=== PATIENT | male | born 1985 | race American Indian/Alaskan Native ===

== ENCOUNTER 2017-04-03 10:34 | Emergency (ER) | payer BC, MEDICAID, OTHER ==
--- NOTE | 2017-04-03 10:37 | EDM.PDOC ---
ED HPI GENERAL MEDICAL PROBLEM - General Chief Complaint: Abdominal Pain Stated Complaint: ABDOMINAL PAIN. IN BY [facility] Time Seen by Provider: 04/03/17 10:36 Source of Information: Reports: Patient, EMS, Old Records, RN, RN Notes Reviewed History Limitations: Reports: No Limitations - History of Present Illness INITIAL COMMENTS - FREE TEXT/NARRATIVE: Arrives from alf by ambulance with c/o onset of middle and upper abdominal pain this morning with nausea and vomiting. Pt reports sensation of fever and chills, but has not had temp. measured. Denies diarrhea, or constipation. Reports feeling slightly distended in the abdomen. Last ate yesterday evening. Last BM yesterday and normal. Denies any radiating pain, or urinary Sx's. Onset: Today Onset Date: 04/03/17 Duration: Constant, Getting Worse, Waxing/Waning Location: Reports: Abdomen Quality: Reports: Ache, Pressure Severity: Severe Improves with: Reports: None Worsens with: Reports: None Associated Symptoms: Reports: No Other Symptoms Epigastric Pain Score (Numeric/FACES): 10 - Related Data Allergies Allergy/AdvReac Type Severity Reaction Status Date / Time hydrocodone Allergy Mild Itching Verified 01/11/15 22:58 Home Meds: Home Meds . [No Known Home Meds] 04/03/17 [History] Past Medical History Gastrointestinal History: Reports: Bowel Obstruction (x3) Social & Family History - Family History Family Medical History: Noncontributory - Tobacco Use Smoking Status *Q: Current Every Day Smoker Years of Tobacco use: 10 Used Tobacco, but Quit: No Second Hand Smoke Exposure: Yes - Alcohol Use Days Per Week of Alcohol Use: 0 Number of Drinks Per Day: 0 Total Drinks Per Week: 0 - Recreational Drug Use Recreational Drug Use: No - Living Situation & Occupation Living situation: Reports: Single, Other (currently in alf at [place]) Occupation: Unemployed ED ROS GENERAL - Review of Systems Review Of Systems: ROS reveals no pertinent complaints other than HPI. ED EXAM, GI/ABD - Physical Exam Exam: See Below Exam Limited By: No Limitations General Appearance: Alert, WD/WN, No Apparent Distress, Obese Eyes: Bilateral: Normal Appearance Nose: Normal Inspection Throat/Mouth: Normal Oropharynx, Normal Voice, No Airway Compromise Head: Atraumatic, Normocephalic Neck: Normal Inspection, Supple, Non-Tender, Full Range of Motion Respiratory/Chest: No Respiratory Distress, Lungs Clear, Normal Breath Sounds, No Accessory Muscle Use, Chest Non-Tender Cardiovascular: Normal Peripheral Pulses, Regular Rate, Rhythm, No Edema, No Gallop, No JVD, No Murmur, No Rub GI/Abdominal: No Organomegaly, No Abnormal Bruit, Hypoactive Bowel Sounds, Tympanic Bowel Sounds, Distention (mild). No: Guarding, Rebound, Rigidity (Male) Exam: Deferred Rectal (Males) Exam: Deferred Back Exam: Normal Inspection, Full Range of Motion. No: CVA Tenderness (L), CVA Tenderness (R) Extremities: Normal Inspection Neurological: Alert, Oriented, CN II-XII Intact, Normal Cognition, No Motor/ Sensory Deficits Psychiatric: Normal Affect, Normal Mood Skin Exam: Warm, Dry, Intact, Normal Color, No Rash Course - Vital Signs Last Recorded V/S: Last Vital Signs Temp 36.7 C 04/03/17 12:26 Pulse 78 04/03/17 12:26 Resp 18 04/03/17 12:26 BP 128/58 L 04/03/17 12:26 Pulse Ox 99 04/03/17 12:26 - Orders/Labs/Meds Orders: Active Orders 24 hr Category Date Time Status Peripheral IV Care [RC] . DIRECTED Care 04/03/17 10:41 Active Sodium Chloride 0.9% [Saline Flush] Med 04/03/17 10:41 Active 10 ml FLUSH ASDIRECTED PRN NG [Nasogastric Orogastric Tube Insertion] [OM.PC] Oth 04/03/17 12:40 Ordered Routine Peripheral IV Insertion Adult [OM.PC] Stat Ot 04/03/17 10:40 Ordered Medication Orders Sodium Chloride (Saline Flush) 10 ml FLUSH ASDIRECTED PRN PRN Reason: Keep Vein Open Labs: Laboratory Tests 04/03/17 04/03/17 04/03/17 Range/Units 10:50 10:50 10:50 WBC 11.7 H (5.0-10.0) 10^3/uL RBC 5.61 (4.6-6.2) 10^6/uL Hgb 15.2 (14.0-18.0) g/dL Hct 46.3 (40.0-54.0) % MCV 82.5 (80-100) fL MCH 27.1 (27.0-34.0) pg MCHC 32.8 L (33.0-35.0) g/dL Plt Count 292 (150-450) 10^3/uL Neut % (Auto) 87.9 H (42.2-75.2) % Lymph % (Auto) 5.7 L (20.5-50.1) % [place] % (Auto) 5.3 (2-8) % Eos % (Auto) 0.9 L (1.0-3.0) % Baso % (Auto) 0.2 (0.0-1.0) % Sodium 139 (135-145) mmol/L Potassium 4.3 (3.6-5.0) mmol/L Chloride 103 (101-111) mmol/L Carbon Dioxide 23.0 (21.0-31.0) mmol/L Anion Gap 17.3 BUN 8 (7-18) mg/dL Creatinine 0.8 (0.6-1.3) mg/dL Est Cr Clr Drug Dosing TNP Estimated GFR (MDRD) > 60 BUN/Creatinine Ratio 10.00 Glucose 131 H (74-105) mg/dL Lactic Acid 1.1 (0.5-2.2) mmol/L Calcium 9.2 (8.4-10.2) mg/dl Total Bilirubin 0.9 (0.2-1.0) mg/dL AST 24 (10-42) IU/L ALT 34 (10-60) IU/L Alkaline Phosphatase 78 (42-121) IU/L Total Protein 7.8 (6.7-8.2) g/dl Albumin 4.2 (3.2-5.5) g/dl Globulin 3.6 Albumin/Globulin Ratio 1.17 Amylase 21 L (28-100) U/L Lipase 17 L (22-51) U/L Urine Color (YELLOW) Urine Appearance (CLEAR) Urine pH (5.0-9.0) Ur Specific [place] (1.005-1.030) Urine Protein (NEGATIVE) Urine Glucose (UA) (NEGATIVE) Urine Ketones (NEGATIVE) Urine Occult Blood (NEGATIVE) Urine Nitrite (NEGATIVE) Urine Bilirubin (NEGATIVE) Urine Urobilinogen (0.2-1.0) mg/dL Ur Leukocyte Esterase (NEGATIVE) Urine RBC /HPF Urine WBC (0-5/HPF) /HPF Amorphous Sediment (0/HPF) /HPF Urine Bacteria (0-FEW/HPF) /HPF Urine Mucus /LPF Urine Opiates Screen (NEGATIVE) Ur Oxycodone Screen (NEGATIVE) Urine Methadone Screen (NEGATIVE) Ur Barbiturates Screen (NEGATIVE) U Tricyclic Antidepress (NEGATIVE) Ur Phencyclidine Scrn (NEGATIVE) Ur Amphetamine Screen (NEGATIVE) U Methamphetamines Scrn (NEGATIVE) Urine MDMA Screen (NEGATIVE) U Benzodiazepines Scrn (NEGATIVE) Urine Cocaine Screen (NEGATIVE) U Marijuana (THC) Screen (NEGATIVE) Ethyl Alcohol < 5 mg/dL 04/03/17 04/03/17 Range/Units 10:57 10:57 WBC (5.0-10.0) 10^3/uL RBC (4.6-6.2) 10^6/uL Hgb (14.0-18.0) g/dL Hct (40.0-54.0) % MCV (80-100) fL MCH (27.0-34.0) pg MCHC (33.0-35.0) g/dL Plt Count (150-450) 10^3/uL Neut % (Auto) (42.2-75.2) % Lymph % (Auto) (20.5-50.1) % [place] % (Auto) (2-8) % Eos % (Auto) (1.0-3.0) % Baso % (Auto) (0.0-1.0) % Sodium (135-145) mmol/L Potassium (3.6-5.0) mmol/L Chloride (101-111) mmol/L Carbon Dioxide (21.0-31.0) mmol/L Anion Gap BUN (7-18) mg/dL Creatinine (0.6-1.3) mg/dL Est Cr Clr Drug Dosing Estimated GFR (MDRD) BUN/Creatinine Ratio Glucose (74-105) mg/dL Lactic Acid (0.5-2.2) mmol/L Calcium (8.4-10.2) mg/dl Total Bilirubin (0.2-1.0) mg/dL AST (10-42) IU/L ALT (10-60) IU/L Alkaline Phosphatase (42-121) IU/L Total Protein (6.7-8.2) g/dl Albumin (3.2-5.5) g/dl Globulin Albumin/Globulin Ratio Amylase (28-100) U/L Lipase (22-51) U/L Urine Color Dark yellow (YELLOW) Urine Appearance Slightly cloudy (CLEAR) Urine pH 7.0 (5.0-9.0) Ur Specific [place] 1.020 (1.005-1.030) Urine Protein Negative (NEGATIVE) Urine Glucose (UA) Negative (NEGATIVE) Urine Ketones 40 H (NEGATIVE) Urine Occult Blood Negative (NEGATIVE) Urine Nitrite Negative (NEGATIVE) Urine Bilirubin Small H (NEGATIVE) Urine Urobilinogen 2.0 H (0.2-1.0) mg/dL Ur Leukocyte Esterase Negative (NEGATIVE) Urine RBC 0-5 /HPF Urine WBC 0-5 (0-5/HPF) /HPF Amorphous Sediment Few (0/HPF) /HPF Urine Bacteria Rare (0-FEW/HPF) /HPF Urine Mucus Moderate H /LPF Urine Opiates Screen Negative (NEGATIVE) Ur Oxycodone Screen Negative (NEGATIVE) Urine Methadone Screen Negative (NEGATIVE) Ur Barbiturates Screen Negative (NEGATIVE) U Tricyclic Antidepress Negative (NEGATIVE) Ur Phencyclidine Scrn Negative (NEGATIVE) Ur Amphetamine Screen Negative (NEGATIVE) U Methamphetamines Scrn Negative (NEGATIVE) Urine MDMA Screen Negative (NEGATIVE) U Benzodiazepines Scrn Negative (NEGATIVE) Urine Cocaine Screen Negative (NEGATIVE) U Marijuana (THC) Screen Negative (NEGATIVE) Ethyl Alcohol mg/dL Meds: Medications Generic Name Dose Route Start Last Admin Trade Name Freq PRN Reason Stop Dose Admin Sodium Chloride 10 ml 04/03/17 10:41 Saline Flush FLUSH ASDIRECTED PRN Keep Vein Open Discontinued Medications Generic Name Dose Route Start Last Admin Trade Name Freq PRN Reason Stop Dose Admin Fentanyl 50 mcg 04/03/17 10:41 04/03/17 10:51 Sublimaze IVPUSH 04/03/17 10:42 50 mcg ONETIME ONE Administration Sodium Chloride 1,000 mls @ 999 mls/hr 04/03/17 10:40 04/03/17 11:10 Normal Saline IV 04/03/17 11:40 999 mls/hr .BOLUS ONE Administration Iopamidol 100 ml 04/03/17 11:26 04/03/17 11:57 Isovue-300 (61%) IVPUSH 04/03/17 11:27 100 ml ONETIME ONE Administration Midazolam HCl 2 mg 04/03/17 12:39 Versed 1 Mg/Ml IVPUSH 04/03/17 12:40 ONETIME ONE Ondansetron HCl 4 mg 04/03/17 10:40 04/03/17 10:47 Zofran IV 04/03/17 10:41 4 mg ONETIME ONE Administration - Radiology Interpretation Free Text/Narrative:: CT Abd/Pelvis: Mechanical SBO without obvious transition point, but with terminal ileum mucosal wall thickening and inflammatory "dirty" fat, no other acute findings, see Rad. report. CT Results Date: 04/03/17 - Re-Assessments/Exams Free Text/Narrative Re-Assessment/Exam: 04/03/17 12:47 Pt refused NG tube placement, stating he would rather wait and have that done in [place]. Departure - Departure Time of Disposition: 12:40 Disposition: DC/Tfer to Acute Hospital 02 Condition: Serious Clinical Impression: Small bowel obstruction - Discharge Information Forms: ED Department Discharge, Interfacility Transfer EMTALA - My Orders Last 24 Hours: My Active Orders 04/03/17 10:40 Peripheral IV Insertion Adult [OM.PC] Stat 04/03/17 10:41 Peripheral IV Care [RC] . DIRECTED Sodium Chloride 0.9% [Saline Flush] 10 ml FLUSH ASDIRECTED PRN 04/03/17 12:40 NG [Nasogastric Orogastric Tube Insertion] [OM.PC] Routine - Assessment/Plan Last 24 Hours: My Active Orders 04/03/17 10:40 Peripheral IV Insertion Adult [OM.PC] Stat 04/03/17 10:41 Peripheral IV Care [RC] . DIRECTED Sodium Chloride 0.9% [Saline Flush] 10 ml FLUSH ASDIRECTED PRN 04/03/17 12:40 NG [Nasogastric Orogastric Tube Insertion] [OM.PC] Routine
[2017-04-03] MEDS ORDERED: Ondansetron 4 MG/2 ML SDV IV ONE (10:40)
[2017-04-03] MEDS ORDERED: Sodium Chloride 0.9% 1,000 ML IV ONE (10:40)
[2017-04-03] MEDS ORDERED: fentaNYL 100 MCG/2 ML SDV IVPUSH ONE (10:41)
[2017-04-03] MEDS ORDERED: Sodium Chloride 0.9% 10 ML Syringe FLUSH PRN (10:41)
[2017-04-03 11:17] LABS: CHLORIDE,CL 103 mmol/L (101-111); SODIUM,NA 139 mmol/L (135-145)
[2017-04-03] MEDS ORDERED: Iopamidol 612 MG/ML 100 ML Bottle IVPUSH ONE (11:26)
[2017-04-03 12:26] VITALS: BP 128/58
--- NOTE | 2017-04-03 12:33 | CT ---
Clinical history: 31-year-old 230 pound "sick" hypertensive male smoker admitted to the emergency de partment with periumbilical pain and elevated white blood cell count (11,700). Scan technique: Volume acquisition of data from the abdomen and pelvis obtained without oral contras t but during intravenous administration 100 cc nonionic Isovue contrast while patient was lying supi ne on the Siemens multi slice scanner [place], [place]. All data arch ived in the PACS system for storage, reformatting and study. Interpretation: Abnormal. 1. *Dilated fluid-filled loops of small intestine, with the exception of terminal ileum that appears to have some mucosal wall thickening and adjacent inflammatory "dirty" mesenteric peritoneal fat i. e. inflammation. Terminal ileitis? 2. Normal appendix identified RLQ. No calcified appendicoliths, periappendiceal abscess or "dirty" f at. 3. Gallbladder, liver, stomach, spleen, pancreas and adrenal glands unremarkable. 4. Normal reniform size axis and configuration. No sign of renal cortical mass lesion, nephrolithias is or obstructive uropathy. Incomplete lead but symmetrically distended normal appearing urinary jeff dder. 5. No pelvic or abdominal mass lesion, appreciable mesenteric or retroperitoneal lymphadenopathy, as cites or free intraperitoneal air. 6. Normal caliber aortoiliac vessels. Normal lumbar spine. Lung bases clear.
[2017-04-03] MEDS ORDERED: Midazolam 1 MG/ML 2 ML SDV IVPUSH ONE (12:39)
== END 2017-04-03 13:22 ==
LOC: DL.ED 10:34
DX: K56.60 Unspecified intestinal obstruction (principal); F17.200 Nicotine dependence, unspecified, uncomplicated; Z88.5 Allergy status to narcotic agent
CPT/HCPCS: 36415; 74177; 80053; 80305; 81001; 82150; 83605; 83690; 85025; 96361; 96374; 96375; 99285; G0480; J2405; J3010; J7030; Q9967

== ENCOUNTER 2017-09-25 18:09 | Emergency (ER) | payer OTHER ==
[2017-09-25 18:22] VITALS: BP 151/99
[2017-09-25] MEDS ORDERED: Ondansetron 4 MG/2 ML SDV IV ONE (18:44)
[2017-09-25] MEDS ORDERED: Sodium Chloride 0.9% 1,000 ML IV ONE (18:44)
--- NOTE | 2017-09-25 18:49 | EDM.PDOC ---
ED HPI GENERAL MEDICAL PROBLEM - General Chief Complaint: Abdominal Pain Stated Complaint: STOMACH PAIN [id number] Time Seen by Provider: 09/25/17 18:45 Source of Information: Reports: Patient History Limitations: Reports: No Limitations - History of Present Illness INITIAL COMMENTS - FREE TEXT/NARRATIVE: 1 week h/o abd pain feeling like a bowel obstruction which he had for long time many years. been Tx @ [facility] before but no surgery needed. been passing gas and no V /D, was nauseous yesterday better today. ate sandwich @ [facility] tonight. Middle Abdomen Pain Score (Numeric/FACES): 6 - Related Data Allergies Allergy/AdvReac Type Severity Reaction Status Date / Time hydrocodone Allergy Mild Itching Verified 09/25/17 18:18 Home Meds: Home Meds . [No Known Home Meds] 04/03/17 [History] Past Medical History HEENT History: Reports: None Cardiovascular History: Reports: None Respiratory History: Reports: None Gastrointestinal History: Reports: Bowel Obstruction Genitourinary History: Reports: None Musculoskeletal History: Reports: None Neurological History: Reports: None Psychiatric History: Reports: None Endocrine/Metabolic History: Reports: None Hematologic History: Reports: None Oncologic (Cancer) History: Reports: None Dermatologic History: Reports: None Social & Family History - Family History Family Medical History: Noncontributory - Tobacco Use Smoking Status *Q: Light Tobacco Smoker Years of Tobacco use: 10 Packs/Tins Daily: 0.2 Used Tobacco, but Quit: No Second Hand Smoke Exposure: Yes - Caffeine Use Caffeine Use: Reports: Soda - Alcohol Use Days Per Week of Alcohol Use: 0 Number of Drinks Per Day: 0 Total Drinks Per Week: 0 - Recreational Drug Use Recreational Drug Use: Yes Recreational Drug Type: Reports: Marijuana/Hashish Recreational Drug Use Frequency: Socially - Living Situation & Occupation Living situation: Reports: Single, Other (currently in residential at [place]) Occupation: Unemployed ED ROS GENERAL - Review of Systems Review Of Systems: ROS reveals no pertinent complaints other than HPI. ED EXAM, GI/ABD - Physical Exam Exam: See Below Exam Limited By: No Limitations General Appearance: Alert, WD/WN, Mild Distress, Other (abd pain) Ears: Hearing Grossly Normal Throat/Mouth: Normal Voice, No Airway Compromise Head: Atraumatic Neck: Non-Tender, Full Range of Motion Respiratory/Chest: No Respiratory Distress Cardiovascular: Regular Rate, Rhythm GI/Abdominal Exam: Tender, Other (general discomfort, hyper BS). No: Distended , Guarding, Rigid, Rebound Neurological: Alert, Oriented, Normal Cognition, Normal Gait, No Motor/Sensory Deficits Psychiatric: Tearful Skin Exam: Warm, Dry, Normal Color Lymphatic: No Adenopathy Course - Vital Signs Last Recorded V/S: Last Vital Signs Temp 37.0 C 09/25/17 18:18 Pulse 75 09/25/17 18:18 Resp 18 09/25/17 18:18 BP 151/99 H 09/25/17 18:18 Pulse Ox 100 09/25/17 18:18 - Orders/Labs/Meds Orders: Active Orders 24 hr Category Date Time Status Abdomen Pelvis wo Cont [CT] Urgent Exams 09/25/17 18:49 Taken Sodium Chloride 0.9% [Normal Saline] 1,000 ml Med 09/25/17 18:44 Active IV .BOLUS Medication Orders Sodium Chloride (Normal Saline) 1,000 mls @ 500 mls/hr IV .BOLUS ONE Stop: 09/25/17 20:43 Last Admin: 09/25/17 18:58 Dose: 500 mls/hr Labs: Laboratory Tests 09/25/17 09/25/17 09/25/17 Range/Units 18:35 18:35 18:35 WBC 10.4 H (5.0-10.0) 10^3/uL RBC 5.39 (4.6-6.2) 10^6/uL Hgb 14.4 (14.0-18.0) g/dL Hct 45.4 (40.0-54.0) % MCV 84.2 (80-100) fL MCH 26.7 L (27.0-34.0) pg MCHC 31.7 L (33.0-35.0) g/dL Plt Count 339 (150-450) 10^3/uL Neut % (Auto) 70.6 (42.2-75.2) % Lymph % (Auto) 17.7 L (20.5-50.1) % [place] % (Auto) 6.4 (2-8) % Eos % (Auto) 5.0 H (1.0-3.0) % Baso % (Auto) 0.3 (0.0-1.0) % Sodium 141 (135-145) mmol/L Potassium 3.6 (3.6-5.0) mmol/L Chloride 106 (101-111) mmol/L Carbon Dioxide 28.0 (21.0-31.0) mmol/L Anion Gap 10.6 BUN 9 (7-18) mg/dL Creatinine 0.7 (0.6-1.3) mg/dL Est Cr Clr Drug Dosing 166.29 mL/min Estimated GFR (MDRD) > 60 BUN/Creatinine Ratio 12.85 Glucose 111 H (74-105) mg/dL Lactic Acid 1.1 (0.5-2.2) mmol/L Calcium 8.7 (8.4-10.2) mg/dl Total Bilirubin 0.5 (0.2-1.0) mg/dL AST 21 (10-42) IU/L ALT 22 (10-60) IU/L Alkaline Phosphatase 66 (42-121) IU/L Total Protein 6.7 (6.7-8.2) g/dl Albumin 3.7 (3.2-5.5) g/dl Globulin 3.0 Albumin/Globulin Ratio 1.23 Amylase 24 L (28-100) U/L Lipase 26 (22-51) U/L Meds: Medications Generic Name Dose Route Start Last Admin Trade Name Freq PRN Reason Stop Dose Admin Sodium Chloride 1,000 mls @ 500 mls/hr 09/25/17 18:44 09/25/17 18:58 Normal Saline IV 09/25/17 20:43 500 mls/hr .BOLUS ONE Administration Discontinued Medications Generic Name Dose Route Start Last Admin Trade Name Freq PRN Reason Stop Dose Admin Ondansetron HCl 4 mg 09/25/17 18:44 09/25/17 18:59 Zofran IV 09/25/17 18:45 4 mg ONETIME ONE Administration - Re-Assessments/Exams Free Text/Narrative Re-Assessment/Exam: 09/25/17 19:56 re-exam; s/p IV + zof = much better now. results discussed with pt. Departure - Departure Time of Disposition: 19:57 Disposition: Home, Self-Care 01 Condition: Good Clinical Impression: Small bowel obstruction, [place] periumbilical abdominal pain - Discharge Information Instructions: Small Bowel Obstruction, [id number] Forms: ED Department Discharge Additional Instructions: 1) avoid solid foods next 48 hours 2) have popsicle, jello, broth, smoothies 3) return if there is any change or concern rx given; bentyl 10mg bid prn x 1 week - My Orders Last 24 Hours: My Active Orders 09/25/17 18:44 Sodium Chloride 0.9% [Normal Saline] 1,000 ml IV .BOLUS 09/25/17 18:49 Abdomen Pelvis wo Cont [CT] Urgent - Assessment/Plan Last 24 Hours: My Active Orders 09/25/17 18:44 Sodium Chloride 0.9% [Normal Saline] 1,000 ml IV .BOLUS 09/25/17 18:49 Abdomen Pelvis wo Cont [CT] Urgent
[2017-09-25 19:08] LABS: ANION GAP 10.6; CHLORIDE,CL 106 mmol/L (101-111); SODIUM,NA 141 mmol/L (135-145)
[2017-09-25] MEDS ORDERED: Dicyclomine 20 MG/2 ML SDV IM ONE (19:57)
== END 2017-09-25 20:13 | disposition home or self-care (01) ==
LOC: DL.ED 18:09
DX: K56.609 Unspecified intestinal obstruction, unspecified as to partial versus complete obstruction (principal); F17.210 Nicotine dependence, cigarettes, uncomplicated; Z88.5 Allergy status to narcotic agent
CPT/HCPCS: 36415; 74176; 80053; 82150; 83605; 83690; 85025; 96361; 96372; 96374; 99284; J0500; J2405; J7030

== ENCOUNTER 2017-10-08 04:15 | Inpatient (IN) | payer OTHER ==
[2017-10-08] MEDS ORDERED: Sodium Chloride 0.9% 1,000 ML IV ONE (04:16)
[2017-10-08] MEDS ORDERED: Metoclopramide 10 MG/2 ML SDV IVPUSH ONE (04:25)
[2017-10-08] MEDS ORDERED: Famotidine 20 MG/2 ML SDV IVPUSH ONE (04:27)
[2017-10-08] MEDS ORDERED: Morphine 4 MG/ML Syringe IVPUSH ONE (04:28)
[2017-10-08] MEDS ORDERED: Iopamidol 612 MG/ML 100 ML Bottle IVPUSH ONE (04:45)
[2017-10-08 04:50] LABS: CHLORIDE,CL 104 mmol/L (101-111); SODIUM,NA 137 mmol/L (135-145)
--- NOTE | 2017-10-08 05:56 | EDM.PDOC ---
ED HPI GENERAL MEDICAL PROBLEM - General Chief Complaint: Abdominal Pain Stated Complaint: IN BY AMBULANCE Time Seen by Provider: 10/08/17 04:20 Source of Information: Reports: Patient, EMS, RN History Limitations: Reports: No Limitations - History of Present Illness INITIAL COMMENTS - FREE TEXT/NARRATIVE: ED via [facility] with c/o severe abdominal pain, HX multiple SBO in past and feels same. Last one week ago, has been at home on clear liquid diet, has had continued mild pain. Had BM yesterday so ate [employer] for supper. 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 No vomiting. Denies fever or chills. Patient reports they have not been able to determine why bowel obstructions, No previous abdominal surgery. Abdomen Pain Score (Numeric/FACES): 6 - Related Data Allergies Allergy/AdvReac Type Severity Reaction Status Date / Time hydrocodone Allergy Mild Itching Verified 10/08/17 04:43 Home Meds: Home Meds . [No Known Home Meds] 04/03/17 [History] Past Medical History HEENT History: Reports: None Cardiovascular History: Reports: None Respiratory History: Reports: None Gastrointestinal History: Reports: Bowel Obstruction Genitourinary History: Reports: None Musculoskeletal History: Reports: None Neurological History: Reports: None Psychiatric History: Reports: None Endocrine/Metabolic History: Reports: None Hematologic History: Reports: None Oncologic (Cancer) History: Reports: None Dermatologic History: Reports: None Social & Family History - Family History Family Medical History: Noncontributory - Tobacco Use Smoking Status *Q: Current Every Day Smoker Years of Tobacco use: 15 Packs/Tins Daily: 1 Used Tobacco, but Quit: No Second Hand Smoke Exposure: Yes - Caffeine Use Caffeine Use: Reports: Coffee - Alcohol Use Days Per Week of Alcohol Use: 1 Number of Drinks Per Day: 6 Total Drinks Per Week: 6 - Recreational Drug Use Recreational Drug Use: No Recreational Drug Type: Reports: Marijuana/Hashish Recreational Drug Use Frequency: Socially - Living Situation & Occupation Living situation: Reports: Single, Other (currently in halfway at [place]) Occupation: Unemployed ED ROS GENERAL - Review of Systems Review Of Systems: See Below Constitutional: Denies: Fever, Chills HEENT: Reports: No Symptoms Respiratory: Reports: No Symptoms GI/Abdominal: Reports: Abdominal Pain (generalized, worse around umbilicus) : Reports: No Symptoms Musculoskeletal: Reports: No Symptoms Skin: Reports: No Symptoms Neurological: Reports: No Symptoms ED EXAM, GI/ABD - Physical Exam Exam: See Below Exam Limited By: No Limitations General Appearance: Alert, Moderate Distress Eyes: Right: Proptosis, Bilateral: EOMI Ears: Normal External Exam Nose: Normal Inspection Throat/Mouth: Normal Inspection Head: Atraumatic, Normocephalic Neck: Normal Inspection Respiratory/Chest: No Respiratory Distress, Lungs Clear, Normal Breath Sounds Cardiovascular: Normal Peripheral Pulses, Regular Rate, Rhythm GI/Abdominal Exam: Abnormal Bowel Sounds (hypoactive right, tympanic mid. Faint lower) Back Exam: Normal Inspection Extremities: Normal Inspection Neurological: Alert, Oriented Psychiatric: Normal Affect Skin Exam: Warm, Dry, Intact, Normal Color Course - Vital Signs Last Recorded V/S: Last Vital Signs Temp 97.5 F 10/08/17 04:20 Pulse 62 10/08/17 05:28 Resp 16 10/08/17 05:28 BP 138/83 10/08/17 05:28 Pulse Ox 97 10/08/17 05:28 - Orders/Labs/Meds Orders: Active Orders 24 hr Category Date Time Status Abdomen Pelvis w Cont [CT] Urgent Exams 10/08/17 04:30 Taken Labs: Laboratory Tests 10/08/17 10/08/17 10/08/17 Range/Units 04:20 04:20 05:28 WBC 9.2 (5.0-10.0) 10^3/uL RBC 5.37 (4.6-6.2) 10^6/uL Hgb 14.5 (14.0-18.0) g/dL Hct 44.4 (40.0-54.0) % MCV 82.7 (80-100) fL MCH 27.0 (27.0-34.0) pg MCHC 32.7 L (33.0-35.0) g/dL Plt Count 300 (150-450) 10^3/uL Neut % (Auto) 67.0 (42.2-75.2) % Lymph % (Auto) 17.8 L (20.5-50.1) % [place] % (Auto) 9.6 H (2-8) % Eos % (Auto) 5.3 H (1.0-3.0) % Baso % (Auto) 0.3 (0.0-1.0) % Sodium 137 (135-145) mmol/L Potassium 4.0 (3.6-5.0) mmol/L Chloride 104 (101-111) mmol/L Carbon Dioxide 26.0 (21.0-31.0) mmol/L Anion Gap 11.0 BUN 13 (7-18) mg/dL Creatinine 0.8 (0.6-1.3) mg/dL Est Cr Clr Drug Dosing 145.50 mL/min Estimated GFR (MDRD) > 60 BUN/Creatinine Ratio 16.25 Glucose 113 H (74-105) mg/dL Calcium 9.1 (8.4-10.2) mg/dl Total Bilirubin 0.5 (0.2-1.0) mg/dL AST 23 (10-42) IU/L ALT 22 (10-60) IU/L Alkaline Phosphatase 68 (42-121) IU/L Total Protein 7.3 (6.7-8.2) g/dl Albumin 4.0 (3.2-5.5) g/dl Globulin 3.3 Albumin/Globulin Ratio 1.21 Amylase 21 L (28-100) U/L Lipase 21 L (22-51) U/L Urine Color Dark yellow (YELLOW) Urine Appearance Clear (CLEAR) Urine pH 5.5 (5.0-9.0) Ur Specific [place] >= 1.030 (1.005-1.030) Urine Protein Negative (NEGATIVE) Urine Glucose (UA) Negative (NEGATIVE) Urine Ketones Trace H (NEGATIVE) Urine Occult Blood Negative (NEGATIVE) Urine Nitrite Negative (NEGATIVE) Urine Bilirubin Small H (NEGATIVE) Urine Urobilinogen >=8.0 H (0.2-1.0) mg/dL Ur Leukocyte Esterase Negative (NEGATIVE) Urine RBC 0-5 /HPF Urine WBC 0-5 (0-5/HPF) /HPF Ur Epithelial Cells Occasional /HPF Urine Bacteria Moderate H (0-FEW/HPF) /HPF Urine Mucus Moderate H /LPF Urine Opiates Screen (NEGATIVE) Ur Oxycodone Screen (NEGATIVE) Urine Methadone Screen (NEGATIVE) Ur Barbiturates Screen (NEGATIVE) U Tricyclic Antidepress (NEGATIVE) Ur Phencyclidine Scrn (NEGATIVE) Ur Amphetamine Screen (NEGATIVE) U Methamphetamines Scrn (NEGATIVE) Urine MDMA Screen (NEGATIVE) U Benzodiazepines Scrn (NEGATIVE) Urine Cocaine Screen (NEGATIVE) U Marijuana (THC) Screen (NEGATIVE) 10/08/17 Range/Units 05:28 WBC (5.0-10.0) 10^3/uL RBC (4.6-6.2) 10^6/uL Hgb (14.0-18.0) g/dL Hct (40.0-54.0) % MCV (80-100) fL MCH (27.0-34.0) pg MCHC (33.0-35.0) g/dL Plt Count (150-450) 10^3/uL Neut % (Auto) (42.2-75.2) % Lymph % (Auto) (20.5-50.1) % [place] % (Auto) (2-8) % Eos % (Auto) (1.0-3.0) % Baso % (Auto) (0.0-1.0) % Sodium (135-145) mmol/L Potassium (3.6-5.0) mmol/L Chloride (101-111) mmol/L Carbon Dioxide (21.0-31.0) mmol/L Anion Gap BUN (7-18) mg/dL Creatinine (0.6-1.3) mg/dL Est Cr Clr Drug Dosing mL/min Estimated GFR (MDRD) BUN/Creatinine Ratio Glucose (74-105) mg/dL Calcium (8.4-10.2) mg/dl Total Bilirubin (0.2-1.0) mg/dL AST (10-42) IU/L ALT (10-60) IU/L Alkaline Phosphatase (42-121) IU/L Total Protein (6.7-8.2) g/dl Albumin (3.2-5.5) g/dl Globulin Albumin/Globulin Ratio Amylase (28-100) U/L Lipase (22-51) U/L Urine Color (YELLOW) Urine Appearance (CLEAR) Urine pH (5.0-9.0) Ur Specific [place] (1.005-1.030) Urine Protein (NEGATIVE) Urine Glucose (UA) (NEGATIVE) Urine Ketones (NEGATIVE) Urine Occult Blood (NEGATIVE) Urine Nitrite (NEGATIVE) Urine Bilirubin (NEGATIVE) Urine Urobilinogen (0.2-1.0) mg/dL Ur Leukocyte Esterase (NEGATIVE) Urine RBC /HPF Urine WBC (0-5/HPF) /HPF Ur Epithelial Cells /HPF Urine Bacteria (0-FEW/HPF) /HPF Urine Mucus /LPF Urine Opiates Screen Positive H (NEGATIVE) Ur Oxycodone Screen Positive H (NEGATIVE) Urine Methadone Screen Negative (NEGATIVE) Ur Barbiturates Screen Negative (NEGATIVE) U Tricyclic Antidepress Negative (NEGATIVE) Ur Phencyclidine Scrn Negative (NEGATIVE) Ur Amphetamine Screen Negative (NEGATIVE) U Methamphetamines Scrn Negative (NEGATIVE) Urine MDMA Screen Negative (NEGATIVE) U Benzodiazepines Scrn Positive H (NEGATIVE) Urine Cocaine Screen Negative (NEGATIVE) U Marijuana (THC) Screen Positive H (NEGATIVE) Meds: Medications Discontinued Medications Generic Name Dose Route Start Last Admin Trade Name Freq PRN Reason Stop Dose Admin Famotidine 20 mg 10/08/17 04:27 10/08/17 04:37 Pepcid IVPUSH 10/08/17 04:28 20 mg ONETIME ONE Administration Sodium Chloride 1,000 mls @ 999 mls/hr 10/08/17 04:16 10/08/17 04:26 Normal Saline IV 10/08/17 05:16 999 mls/hr .BOLUS ONE Administration Iopamidol 100 ml 10/08/17 04:45 10/08/17 05:23 Isovue-300 (61%) IVPUSH 10/08/17 04:46 100 ml ONETIME ONE Administration Metoclopramide HCl 10 mg 10/08/17 04:25 10/08/17 04:29 Reglan IVPUSH 10/08/17 04:26 10 mg ONETIME ONE Administration Morphine Sulfate 4 mg 10/08/17 04:28 10/08/17 04:38 Morphine IVPUSH 10/08/17 04:29 4 mg ONETIME ONE Administration - Radiology Interpretation Free Text/Narrative:: CT abdomen with contrast: Small bowel obstruction, transition present in right anterior flank with in the distal ileum, See report - Re-Assessments/Exams Free Text/Narrative Re-Assessment/Exam: NG placed 300ml immediate return colored liquid, Improvement in pain. CT with contrast- SBO 10/08/17 06:[address] Mcmanus, accepting of patient for further management. Departure - Departure Time of Disposition: 06:10 Disposition: Admitted As Inpatient 66 Condition: Fair Clinical Impression: SBO (small bowel obstruction) - Discharge Information Forms: ED Department Discharge - My Orders Last 24 Hours: My Active Orders 10/08/17 04:30 Abdomen Pelvis w Cont [CT] Urgent - Assessment/Plan Last 24 Hours: My Active Orders 10/08/17 04:30 Abdomen Pelvis w Cont [CT] Urgent
[2017-10-08] MEDS ORDERED: Ondansetron 4 MG/2 ML SDV IV PRN (07:36)
[2017-10-08] MEDS ORDERED: Sodium Chloride 0.9% 10 ML Syringe FLUSH PRN (07:38)
[2017-10-08] MEDS ORDERED: Zolpidem 5 MG Tab PO PRN (07:38)
--- NOTE | 2017-10-08 08:30 | PCM.HP ---
H&P History of Present Illness - General Date of Service: 10/08/17 Admit Problem/Dx: Admission Diagnosis/Problem Admission Diagnosis/Problem Small bowel obstruction - History of Present Illness Initial Comments - Free Text/Narative: The patient is a 32-year-old gentleman with a history of recurrent small bowel obstructions. He has not had any abdominal surgeries and never found particular reason for these episodes. He says he had about 4-5 similar episodes in the past 5 years. The patient developed abdominal pain distention nausea about a week ago. He was in the emergency room and was on clear liquid diet at home. Symptoms improved and then yesterday ate regular taco meal. Subsequently the pain returned, nausea vomiting returned, abdomen distended. Came into the emergency room. Abdomen Pain Score (Numeric/FACES): 6 - Related Data Allergies/Adverse Reactions: Allergies Allergy/AdvReac Type Severity Reaction Status Date / Time hydrocodone Allergy Mild Itching Verified 10/08/17 06:37 Home Medications: Home Meds . [No Known Home Meds] 04/03/17 [History] Past Medical History HEENT History: Reports: None Cardiovascular History: Reports: None Respiratory History: Reports: None Gastrointestinal History: Reports: Bowel Obstruction Genitourinary History: Reports: None Musculoskeletal History: Reports: None Neurological History: Reports: None Psychiatric History: Reports: None Endocrine/Metabolic History: Reports: None Hematologic History: Reports: None Oncologic (Cancer) History: Reports: None Dermatologic History: Reports: None Social & Family History - Family History Family Medical History: Noncontributory - Tobacco Use Smoking Status *Q: Current Every Day Smoker Years of Tobacco use: 16 Packs/Tins Daily: 0.4 Used Tobacco, but Quit: No Second Hand Smoke Exposure: Yes - Caffeine Use Caffeine Use: Reports: None - Alcohol Use Days Per Week of Alcohol Use: 1 Number of Drinks Per Day: 6 Total Drinks Per Week: 6 Date of Last Drink: 09/26/17 Time of Last Drink: 21:00 - Recreational Drug Use Recreational Drug Use: No Recreational Drug Type: Reports: Other (see below) Other Recreational Drug Type: pot Recreational Drug Use Frequency: Monthly Recreational Drug Last Use: 2 weeks ago - Living Situation & Occupation Living situation: Reports: Single, Other (currently in long-term at [place]) Occupation: Unemployed H&P Review of Systems - Review of Systems: Review Of Systems: See Below General: Denies: Fever Pulmonary: Denies: Shortness of Breath Cardiovascular: Denies: Chest Pain, Edema Gastrointestinal: Reports: Abdominal Pain, Constipation (Last bowel movement on 07 October), Other Genitourinary: Denies: Dysuria Psychiatric: Denies: Confusion Exam - Exam Exam: See Below - Vital Signs Vital Signs: Last Vital Signs Temp 36.6 C 10/08/17 06:35 Pulse 54 L 10/08/17 06:35 Resp 16 10/08/17 06:35 BP 129/73 10/08/17 06:35 Pulse Ox 99 10/08/17 06:35 Weight: 99.201 kg - Exam Quality Assessment: Supplemental Oxygen General: Alert, Oriented HEENT: Other (NG tube in place) Neck: Supple Lungs: Clear to Auscultation, Normal Respiratory Effort Cardiovascular: Regular Rate, Regular Rhythm GI/Abdominal Exam: Normal Bowel Sounds, No Distention Rectal (Males) Exam: Normal Exam Back Exam: Normal Inspection Extremities: Normal Inspection Skin: Warm Neuro Extensive - Mental Status: Alert, Oriented x3, Normal Mood/Affect Psychiatric: Alert, Normal Affect, Normal Mood - Patient Data Result Diagrams: 10/08/17 04:20 10/08/17 04:20 *Q Meaningful Use (ADM) - VTE *Q VTE Criteria *Q: - Stroke *Q Stroke Criteria *Q: - AMI *Q AMI Criteria *Q: - Problem List (1) Small bowel obstruction SNOMED Code(s): 079120231 ICD Code: K56.69 - OTHER INTESTINAL OBSTRUCTION * DO NOT USE * Status: Acute Current Visit: Yes Problem List Initiated/Reviewed/Updated: Yes Orders Last 24hrs: Medication Orders Benzocaine/Menthol (Cepacol Sore Throat) 1 lozenge MUCMEM 5XDAY PRN PRN Reason: Sore Throat Heparin Sodium (Porcine) (Heparin Sodium) 5,000 units SUBCUT Q8HR RODRÍGUEZ Potassium Chloride/Sodium Chloride (Normal Saline With 20 Meq Kcl) 1,000 mls @ 100 mls/hr IV ASDIRECTED [facility] Morphine Sulfate (Morphine) 1 mg IVPUSH Q4H PRN PRN Reason: Pain Ondansetron HCl (Zofran) 4 mg IV Q6H PRN PRN Reason: Nausea/Vomiting Pantoprazole Sodium (Protonix Iv) 40 mg IVPUSH Q12H [facility]ODR[facility]GUEZ Sodium Chloride (Saline Flush) 10 ml FLUSH ASDIRECTED PRN PRN Reason: Keep Vein Open Zolpidem Tartrate (Ambien) 5 mg PO BEDTIME PRN PRN Reason: Sleep Assessment/Plan Comment:: Small bowel obstruction The patient has a history of recurrent small bowel obstructions Treat conservatively IV fluids, Protonix, pain medication For now keep nothing by mouth and NG tube on suction Follow electrolytes and replace them as needed Slowly advance diet when pain and distention is better
[2017-10-08] MEDS: Morphine 2 MG/ML Syringe IVPUSH PRN (09:38)
[2017-10-08] MEDS: Pantoprazole 40 MG Vial IVPUSH SCH ×2 (09:42→20:51)
[2017-10-08] MEDS: Benzocaine/Cetylpyridinium/Menthol Lozenge MUCMEM PRN ×4 (10:13→23:56)
[2017-10-08] MEDS: Heparin Sodium 5,000 Units/ML Vial SUBCUT SCH ×2 (14:09→22:02)
[2017-10-08] MEDS: NS + KCl 20mEq/L 1,000 ML IV SCH (19:59)
[2017-10-09] MEDS: Morphine 2 MG/ML Syringe IVPUSH PRN (01:49)
[2017-10-09] MEDS: Heparin Sodium 5,000 Units/ML Vial SUBCUT SCH ×2 (06:22→15:07)
[2017-10-09] MEDS: NS + KCl 20mEq/L 1,000 ML IV SCH (06:23)
[2017-10-09] MEDS: Benzocaine/Cetylpyridinium/Menthol Lozenge MUCMEM PRN (06:31)
[2017-10-09] MEDS: Pantoprazole 40 MG Vial IVPUSH SCH (08:19)
--- NOTE | 2017-10-09 11:10 | PCM.DCSUM1 ---
Discharge Summary - Hospital Course Free Text/Narrative:: 32-year-old gentleman with a recurrent idiopathic small bowel obstructions. He developed abdominal pain, nausea. Small bowel obstruction Treated conservatively with NG tube on suction Was receiving IV fluids, Protonix, pain medication The patient's symptoms improved We'll be discharged in stable condition with slowly advancing diet - Discharge Data Discharge Date: 10/09/17 Discharge Disposition: Home, Self-Care 01 Condition: Good - Discharge Diagnosis/Problem(s) (1) Small bowel obstruction SNOMED Code(s): 399530387 ICD Code: K56.69 - OTHER INTESTINAL OBSTRUCTION * DO NOT USE * Status: Acute Current Visit: Yes - Patient Instructions Diet: Usual Diet as Tolerated (Advanced slowly from full liquid) Activity: As Tolerated - Discharge Plan Home Medications: Home Meds . [No Known Home Meds] 04/03/17 [History] - General Info Date of Service: 10/09/17 - Review of Systems General: Denies: Fever Pulmonary: Denies: Shortness of Breath Cardiovascular: Denies: Chest Pain Gastrointestinal: Reports: Flatus. Denies: Abdominal Pain - Patient Data Vitals - Most Recent: Last Vital Signs Temp 36.9 C 10/09/17 07:54 Pulse 58 L 10/09/17 07:54 Resp 14 10/09/17 07:54 BP 112/58 L 10/09/17 07:54 Pulse Ox 95 10/09/17 07:54 Weight - Most Recent: 99.201 kg I&O - Last 24 hours: Intake & Output 10/08/17 10/09/17 10/09/17 22:59 06:59 14:59 Intake Total 1225 Output Total 800 625 Balance -800 600 Med Orders - Current: Current Medications Benzocaine/Menthol (Cepacol Sore Throat) 1 lozenge MUCMEM 5XDAY PRN PRN Reason: Sore Throat Last Admin: 10/09/17 06:31 Dose: 1 lozenge Heparin Sodium (Porcine) (Heparin Sodium) 5,000 units SUBCUT Q8HR [facility] Last Admin: 10/09/17 06:22 Dose: 5,000 units Potassium Chloride/Sodium Chloride (Normal Saline With 20 Meq Kcl) 1,000 mls @ 100 mls/hr IV ASDIRECTED [facility] Last Admin: 10/09/17 06:23 Dose: 100 mls/hr Morphine Sulfate (Morphine) 1 mg IVPUSH Q4H PRN PRN Reason: Pain Last Admin: 10/09/17 01:49 Dose: 1 mg Ondansetron HCl (Zofran) 4 mg IV Q6H PRN PRN Reason: Nausea/Vomiting Pantoprazole Sodium (Protonix Iv) 40 mg IVPUSH Q12H [facility] Last Admin: 10/09/17 08:19 Dose: 40 mg Sodium Chloride (Saline Flush) 10 ml FLUSH ASDIRECTED PRN PRN Reason: Keep Vein Open Last Admin: 10/09/17 08:29 Dose: 10 ml Zolpidem Tartrate (Ambien) 5 mg PO BEDTIME PRN PRN Reason: Sleep Last Admin: 10/08/17 22:02 Dose: 5 mg Discontinued Medications Famotidine (Pepcid) 20 mg IVPUSH ONETIME ONE Stop: 10/08/17 04:28 Last Admin: 10/08/17 04:37 Dose: 20 mg Sodium Chloride (Normal Saline) 1,000 mls @ 999 mls/hr IV .BOLUS ONE Stop: 10/08/17 05:16 Last Admin: 10/08/17 04:26 Dose: 999 mls/hr Iopamidol (Isovue-300 (61%)) 100 ml IVPUSH ONETIME ONE Stop: 10/08/17 04:46 Last Admin: 10/08/17 05:23 Dose: 100 ml Metoclopramide HCl (Reglan) 10 mg IVPUSH ONETIME ONE Stop: 10/08/17 04:26 Last Admin: 10/08/17 04:29 Dose: 10 mg Morphine Sulfate (Morphine) 4 mg IVPUSH ONETIME ONE Stop: 10/08/17 04:29 Last Admin: 10/08/17 04:38 Dose: 4 mg - Exam General: Reports: Alert, Oriented Neck: Reports: Supple Lungs: Reports: Clear to Auscultation, Normal Respiratory Effort GI/Abdominal Exam: Normal Bowel Sounds, Soft, Non-Tender, No Distention. No: Rebound, Tender Extremities: No Pedal Edema *Q Meaningful Use (DIS) - VTE *Q VTE Criteria *Q: - Stroke *Q Stroke Criteria *Q: - AMI *Q AMI Criteria *Q:
[2017-10-09 13:44] VITALS: BP 134/73
== END 2017-10-09 15:00 | disposition home or self-care (01) | DRG 390 ==
LOC: DL.ED 04:15 → UNDOADMIN 06:15 → DL.MS 06:15
PROVIDERS: ADMIT Internal Medicine; ATTEND Internal Medicine
DX: K56.699 Other intestinal obstruction unspecified as to partial versus complete obstruction (principal); Z88.8 Allergy status to other drugs, medicaments and biological substances; F17.210 Nicotine dependence, cigarettes, uncomplicated
CPT/HCPCS: 36415; 74177; 80053; 80305; 81001; 82150; 83690; 85025; 96365; 96375; 99285; A9270-GY; C9113; J1644; J2270; J2765; J3480; J7030; J7050; Q9967; S0028

== ENCOUNTER 2022-04-08 15:25 | Emergency (ER) | payer MEDICAID ==
[2022-04-08 15:40] VITALS: BP 145/93; PULSE 105
[2022-04-08] MEDS ORDERED: HYDROmorphone 1 MG/ML Syringe IVPUSH ONE (16:20)
[2022-04-08] MEDS ORDERED: Sodium Chloride 0.9% 10 ML Syringe FLUSH PRN (16:20)
[2022-04-08] MEDS ORDERED: Ondansetron 4 MG/2 ML SDV IVPUSH ONE (16:20)
== END 2022-04-08 17:20 | disposition home or self-care (01) ==
LOC: DL.ED 15:25
DX: S82.842A Displaced bimalleolar fracture of left lower leg, initial encounter for closed fracture (principal); S82.832A Other fracture of upper and lower end of left fibula, initial encounter for closed fracture; E11.9 Type 2 diabetes mellitus without complications; F17.210 Nicotine dependence, cigarettes, uncomplicated; Z88.5 Allergy status to narcotic agent; Z79.84 Long term (current) use of oral hypoglycemic drugs; X50.1XXA Overexertion from prolonged static or awkward postures, initial encounter
CPT/HCPCS: 29515; 73610-LT; 73630-LT; 96374; 96375; 99283-25; 99284; J1170; J2405; J3490

== ENCOUNTER 2023-12-12 02:06 | Emergency (ER) | payer SELFPAY ==
[2023-12-12 02:16] VITALS: BP 121/88; PULSE 107
== END 2023-12-12 02:17 ==
LOC: DL.ED 02:06
DX: F10.129 Alcohol abuse with intoxication, unspecified (principal); E11.9 Type 2 diabetes mellitus without complications; Z86.16 Personal history of COVID-19; Z79.84 Long term (current) use of oral hypoglycemic drugs; Z88.5 Allergy status to narcotic agent
CPT/HCPCS: 99283; 99284

== ENCOUNTER 2024-02-28 23:54 | Emergency (ER) | payer SELFPAY ==
[2024-02-29 00:10] VITALS: BP 123/83; PULSE 111
[2024-02-29] MEDS: Insulin Regular, Human 100 Units/ML 3 ML Vial IV ONE (00:16)
[2024-02-29] MEDS: Sodium Chloride 0.9% 1,000 ML IV ONE (00:16)
[2024-02-29 00:24] LABS: BASOPHILS PERCENT AUTO 0.8 % (0.0-1.0); EOSINOPHILS PERCENT AUTO 2.5 % (1.0-3.0); HEMATOCRIT 40.7 % (40.0-54.0); HEMOGLOBIN 13.5 g/dL (14.0-18.0); LYMPHOCYTES PERCENT AUTO 25.3 % (20.5-50.1); MEAN CORPUSCULAR HEMOGLOBIN 27.8 pg (27.0-34.0); MEAN CORPUSCULAR HGB CONC 33.2 g/dL (33.0-35.0); MEAN CORPUSCULAR VOLUME 83.7 fL (80-100); MONOCYTES PERCENT AUTO 5.6 % (2-8); NEUTROPHILS PERCENT AUTO 65.8 % (42.2-75.2); PLATELET COUNT,PLT 237 10^3/uL (150-450); RED BLOOD CELL COUNT 4.86 10^6/uL (4.6-6.2); WHITE BLOOD CELL COUNT,WBC 4.8 10^3/uL (5.0-10.0)
[2024-02-29 00:48] LABS: APPEARANCE,URINE CLEAR (CLEAR); BILIRUBIN,URINE NEGATIVE (NEGATIVE); COLOR,URINE YELLOW (YELLOW); GLUCOSE,URINE 500 (NEGATIVE); KETONES,URINE TRACE (NEGATIVE); LEUKOCYTE ESTERASE,URINE NEGATIVE (NEGATIVE); NITRITE,URINE NEGATIVE (NEGATIVE); OCCULT BLOOD,URINE NEGATIVE (NEGATIVE); PH,URINE 5.5 (5.0-9.0); PROTEIN,URINE NEGATIVE (NEGATIVE); UROBILINOGEN,URINE 0.2 mg/dL (0.2-1.0)
[2024-02-29 00:53] LABS: KETONES,BLOOD NEGATIVE
[2024-02-29 00:54] LABS: AMPHETAMINES,URINE NEGATIVE (NEGATIVE); BARBITURATES,URINE NEGATIVE (NEGATIVE); BENZODIAZEPINE,URINE NEGATIVE (NEGATIVE); MDMA (ECSTASY), URINE NEGATIVE (NEGATIVE); METHADONE,URINE NEGATIVE (NEGATIVE); METHAMPHETAMINES,URINE NEGATIVE (NEGATIVE); OPIATES,URINE NEGATIVE (NEGATIVE); OXYCODONE,URINE NEGATIVE (NEGATIVE); PHENCYCLIDINE,URINE NEGATIVE (NEGATIVE); TCA,URINE NEGATIVE (NEGATIVE)
[2024-02-29 01:00] LABS: ALANINE AMINOTRANSFERASE,ALT 19 U/L (16-63); ALKALINE PHOSPHATASE 79 U/L (46-116); ASPARTATE AMNIOTRANSFERASE,AST 13 U/L (15-37); BILIRUBIN TOTAL 0.3 mg/dL (0.2-1.0); BLOOD UREA NITROGEN,BUN 9 mg/dL (7-18); BUN/CREATININE RATIO 10.3 (No establ ref range); CALCIUM 7.6 mg/dL (8.5-10.1); CARBON DIOXIDE,CO2 26 mmol/L (21-32); CHLORIDE,CL 102 mmol/L (98-107); CREATININE 0.87 mg/dL (0.70-1.30); EST CRCL DRUG DOSING (CG) 126.36 mL/min; ETHANOL BLOOD MEDICAL 262 mg/dL (0); LIPASE 59 U/L (16-77); MAGNESIUM 1.8 mg/dL (1.8-2.4); PROTEIN TOTAL,TP 6.7 g/dL (6.4-8.2); SODIUM,NA 137 mmol/L (136-145)
[2024-02-29 01:01] LABS: A/G RATIO 0.81; ESTIMATED GFR 113 mL/min (>=60); GLUCOSE RANDOM 568 mg/dL (70-99); LACTIC ACID 3.1 mmol/L (0.4-2.0)
== END 2024-02-29 02:59 | disposition home or self-care (01) ==
LOC: DL.ED 23:54
DX: E11.65 Type 2 diabetes mellitus with hyperglycemia (principal); F10.10 Alcohol abuse, uncomplicated; Z88.5 Allergy status to narcotic agent; Z79.84 Long term (current) use of oral hypoglycemic drugs; Z86.16 Personal history of COVID-19; Y90.9 Presence of alcohol in blood, level not specified
CPT/HCPCS: 36415; 71045; 80053; 80305; 80307; 81003; 82009; 82800; 82947; 83605; 83690; 83735; 84484; 85025; 93005; 93010; 96360; 99284; 99285; J1815; J7030